=== PATIENT | female | born 1980 | race Caucasian/White ===

== ENCOUNTER 2017-07-15 10:56 | Emergency (ER) | payer BC, MEDICAID ==
[2017-07-15 11:09] VITALS: BP 137/79
--- NOTE | 2017-07-15 11:57 | EDM.PDOC ---
ED HPI GENERAL MEDICAL PROBLEM - General Chief Complaint: Back Pain or Injury Stated Complaint: BACK PAIN Time Seen by Provider: 07/15/17 11:42 Source of Information: Reports: Patient History Limitations: Reports: No Limitations - History of Present Illness INITIAL COMMENTS - FREE TEXT/NARRATIVE: 36-year-old female presents for evaluation and treatment of right-sided back pain. Patient reports yesterday she was walking down some stairs when she slipped on some mud and fell onto her right side. sounds that she's fell onto her right buttocks. States that she broke her phone that was in her pocket when this occurred. S he is primarily complaining of pain to the right side of her back with some radiation down to the right posterior leg. No numbness or tingling. She states that she felt a pop but did not hear any sounds. She does not have any urinary incontinence or stool incontinence. No saddle anesthesia. No numbness or tingling into the legs. She states she does have some problems with some chronic right knee pain. She states that the back pain is worse with movement, and sitting. Sates the pain is a 10 out of 10 with movement. Pain is 4 out of 10 when she is laying flat. She did not take any treatment prior to arrival in the ER. Right Lower Back Pain Score (Numeric/FACES): 7 - Related Data Allergies Allergy/AdvReac Type Severity Reaction Status Date / Time No Known Allergies Allergy Verified 07/15/17 11:09 Home Meds: Home Meds Albuterol Sulfate [Proair Hfa] 8.5 gm PO Q4H PRN 02/22/15 [History] Acetaminophen/oxyCODONE [Percocet 325-5 MG] 1 tab PO Q6HR PRN #8 tab 07/15/17 [ Rx] Eletriptan [Relpax] 40 mg PO DAILY PRN 07/15/17 [History] Fluticasone/Salmeterol [Advair 250-50 Diskus] 1 inh INH DAILY 07/15/17 [History] Naproxen 500 mg PO BID PRN #20 tablet 07/15/17 [Rx] Orphenadrine [Norflex] 100 mg PO BID PRN #20 tab.er 07/15/17 [Rx] Past Medical History Respiratory History: Reports: Asthma - Past Surgical History HEENT Surgical History: Reports: Adenoidectomy, Tonsillectomy GI Surgical History: Reports: Appendectomy, Cholecystectomy Female Surgical History: Reports: Section, D&C, Tubal Ligation Other Musculoskeletal Surgeries/Procedures:: lipoma removed from back Social & Family History - Tobacco Use Smoking Status *Q: Current Every Day Smoker Years of Tobacco use: 23 Packs/Tins Daily: 1 - Caffeine Use Caffeine Use: Reports: Soda - Alcohol Use Days Per Week of Alcohol Use: 0 - Recreational Drug Use Recreational Drug Use: No - Living Situation & Occupation Living situation: Reports: with Significant Other, with Family ED ROS GENERAL - Review of Systems Review Of Systems: See Below GI/Abdominal: Denies: Stool Incontinence : Denies: Incontinence Musculoskeletal: Reports: Back Pain (right low back into right leg), Leg Pain Neurological: Denies: Numbness, Tingling ED EXAM,LOWER BACK PAIN/INJURY - Physical Exam Exam: See Below Exam Limited By: No Limitations General Appearance: Alert, WD/WN, Moderate Distress, Obese Respiratory/Chest: No Respiratory Distress, Lungs Clear, Normal Breath Sounds Cardiovascular: Normal Peripheral Pulses, Regular Rate, Rhythm, No Murmur Back Exam: Normal Inspection, Vertebral Tenderness (minor L3-sacrum; right SI joint) Extremities: Normal Inspection Neurological: Alert, Normal Mood/Affect, Normal Dorsiflexion, Normal Plantar Flexion, Normal Gait. No: Straight Leg Raise (L), Straight Leg Raise (R), Saddle Anesthesia Psychiatric: Normal Affect, Normal Mood Skin Exam: Warm, Dry, Normal Color Course - Vital Signs Last Recorded V/S: Last Vital Signs Temp 36.4 C 07/15/17 11:06 Pulse 106 H 07/15/17 11:06 Resp 16 07/15/17 11:06 BP 137/79 07/15/17 11:06 Pulse Ox 98 07/15/17 11:06 - Orders/Labs/Meds Meds: Medications Discontinued Medications Generic Name Dose Route Start Last Admin Trade Name Freq PRN Reason Stop Dose Admin Ketorolac Tromethamine 60 mg 07/15/17 11:58 07/15/17 12:03 Toradol IM 07/15/17 11:59 60 mg ONETIME ONE Administration Orphenadrine Citrate 100 mg 07/15/17 12:00 07/15/17 12:03 Norflex PO 100 mg BID DOT Administration - Radiology Interpretation Free Text/Narrative:: Lumbar spine: AP, lateral and coned-down lateral views were obtained of the lumbar spine. Comparison: No prior lumbar spine exam. Minimal scoliosis is noted. Vertebral body heights and disc spaces are preserved. Pedicles are intact. Visualized transverse and spinous processes are intact. Sacroiliac joints are within normal limits. Surgical clips are seen from prior cholecystectomy. Impression: 1. Incidental findings. Nothing acute is seen on three-view lumbar spine study. - Re-Assessments/Exams Free Text/Narrative Re-Assessment/Exam: 07/15/17 13:39 I reviewed the x-ray results with the patient. She does acknowledge that the pain does feel better when she is laying flat, however, she's not tried to get up. I will discharge her home at this time. Instructions to follow-up if not much better within 2 weeks. Discharge instructions as documented. Departure - Departure Time of Disposition: 13:40 Disposition: Home, Self-Care 01 Condition: Fair Clinical Impression: Back injury, Muscle spasm - Discharge Information Prescriptions: Acetaminophen/oxyCODONE [Percocet 325-5 MG] 1 tab PO Q6HR PRN #8 tab PRN Reason: Pain Naproxen 500 mg PO BID PRN #20 tablet PRN Reason: Pain Orphenadrine [Norflex] 100 mg PO BID PRN #20 tab.er PRN Reason: Muscle Spasm Instructions: Muscle Cramps and Spasms, [id number], Back Injury Prevention, [id number] Referrals: PCP,Not In Area [Primary Care Provider] - Darby Merrill PA-C [Physician [employer] Loc[employer]] - Forms: ED Department Discharge Additional Instructions: Take the naproxen 1 tab twice a day as needed for pain. For severe pain not relieved by naproxen you may take Percocet 1 tab every 6 hours. Percocet is habit-forming, take as few of these as needed to control your pain. Do not drive or operate machinery within 12 hours of taking Percocet. Norflex 1 tab twice a day as needed muscle spasms. This medication may make you drowsy. Do not drive or operate machinery within 12 hours of taking Norflex. Follow-up with family medicine if your symptoms persist beyond 10 days. Recommend Mildred Chamberlain or Rick Lr at the [facility]. Call [phone] schedule a provider there. Respiratory not be completely immobile. Activity as tolerated. Consider going to physical therapy. Recommend repeat physical therapy. Call [phone] to schedule the provider there. Recommend using moist heat to the back for additional pain relief. He may also try topical products such as icy hot or BenGay. Please return to the ER if your symptoms change or worsen.
[2017-07-15] MEDS ORDERED: Ketorolac 60 MG/2 ML SDV IM ONE (11:58)
[2017-07-15] MEDS ORDERED: Orphenadrine 100 MG Tab.ER PO SCH (12:00)
--- NOTE | 2017-07-15 13:21 | CR ---
Lumbar spine: AP, lateral and coned-down lateral views were obtained of the lumbar spine. Comparison: No prior lumbar spine exam. Minimal scoliosis is noted. Vertebral body heights and disc spaces are preserved. Pedicles are intact. Visualized transverse and spinous processes are intact. Sacroiliac joints are within normal limits. Surgical clips are seen from prior cholecystectomy. Impression: 1. Incidental findings. Nothing acute is seen on three-view lumbar spine study. Diagnostic code #2
== END 2017-07-15 14:18 | disposition home or self-care (01) ==
LOC: JD.ED 10:56
DX: S39.92XA Unspecified injury of lower back, initial encounter (principal); M62.830 Muscle spasm of back; F17.210 Nicotine dependence, cigarettes, uncomplicated; Z79.899 Other long term (current) drug therapy; W10.9XXA Fall (on) (from) unspecified stairs and steps, initial encounter
CPT/HCPCS: 72100; 96372; 99283; A9270; J1885